=== PATIENT | female | born 1985 | race Caucasian/White ===

== ENCOUNTER 2016-11-09 17:28 | Emergency (ER) | payer OTHER ==
[2016-11-09] MEDS ORDERED: DIPHENHYDRAMINE HCL 50 MG/ML VIAL IV ONE (17:44)
[2016-11-09] MEDS ORDERED: LORAZEPAM INJ 2 MG/1 ML VIAL IV ONE (17:44)
[2016-11-09] MEDS ORDERED: NORMAL SALINE 1000 ML 1,000 ML IV PRN (17:44)
--- NOTE | 2016-11-09 17:45 | ER Document Report ---
ED General - General Chief Complaint: Altered Mental Status Stated Complaint: ALTERED MENTAL STATE Time Seen by Provider: 11/09/16 17:37 Mode of Arrival: Wheelchair Information source: Patient, Relative - HPI Patient complains to provider of: Possible hallucinations Onset: This afternoon Onset/Duration: Sudden Similar symptoms previously: No Recently seen / treated by doctor: No Notes: Patient is a 31-year-old female who was brought to the emergency room by for possible hallucinations, patient reports that she has swelling in her feet and her hands, and that she has warms crawling out of her skin all over her, she reports having a intermediate manager her right eye as well, patient currently takes Adderall for ADD, no other medications, denies using any street drugs, denies being , denies injury or trauma, her Enrique is at bedside and confirms that patient has never had symptoms similar to this in the past, he does report that they had an argument last night and he believes that patient is having an "mental breakdown" - Related Data Allergies/Adverse Reactions: acetaminophen [From Darvocet-N 100] Allergy (Verified 12/13/10 16:40) propoxyphene napsylate [From Darvocet-N 100] Allergy (Verified 12/13/10 16:40) Past Medical History - General Information source: Patient, Relative - Social History Smoking Status: Never Smoker Drug Abuse: None Lives with: Family Family History: Reviewed & Not Pertinent Renal/ Medical History: Denies: Hx Peritoneal Dialysis Review of Systems - Review of Systems Constitutional: No symptoms reported EENT: No symptoms reported Cardiovascular: No symptoms reported Respiratory: No symptoms reported Gastrointestinal: No symptoms reported Genitourinary: No symptoms reported Female Genitourinary: No symptoms reported Musculoskeletal: No symptoms reported Skin: See HPI Hematologic/Lymphatic: No symptoms reported Neurological/Psychological: See HPI -: Yes All other systems reviewed and negative Physical Exam - Vital signs Vitals: Resp Pulse Ox 28 H 99 11/09/16 17:39 11/09/16 17:39 Interpretation: Normal - General General appearance: Appears well, Alert - HEENT Head: Normocephalic, Atraumatic Eyes: Normal Conjunctiva: Injected Cornea: Normal Extraocular movements intact: Yes Eyelashes: Normal Pupils: PERRL Mucous membranes: Dry Pharynx: Normal Neck: Normal - Respiratory Respiratory status: No respiratory distress Chest status: Nontender Breath sounds: Normal Chest palpation: Normal - Cardiovascular Rhythm: Regular Heart sounds: Normal auscultation Murmur: No - Abdominal Inspection: Normal Distension: No distension Bowel sounds: Normal Tenderness: Nontender Organomegaly: No organomegaly - Back Back: Normal, Nontender - Extremities General upper extremity: Normal inspection, Nontender, Normal color, Normal ROM , Normal temperature General lower extremity: Normal inspection, Nontender, Normal color, Normal ROM , Normal temperature, Normal weight bearing. No: Luis's sign - Neurological Neuro grossly intact: Yes Cognition: Normal Orientation: AAOx4 [place] Coma Scale Eye Opening: Spontaneous Abel Coma Scale Verbal: Oriented Abel Coma Scale Motor: Obeys Commands Abel Coma Scale Total: 15 Speech: Normal Motor strength normal: LUE, RUE, LLE, RLE Sensory: Normal - Psychological Associated symptoms: Anxious, Visual hallucinations - Skin Skin Temperature: Warm Skin Moisture: Dry Skin Color: Normal Location of irregularity: Face - Small erythematous described lesions to the patient's face and upper lip, Extremities - Several small indurated erythematous lesions to patient's upper extremities Course - Re-evaluation Re-evalutation: 11/09/16 20:27 Patient continues to report warm crawling out of her skin with swelling in her extremities, I see no evidence of swelling evidence of any insects or worms, right eye was evaluated with fluorescein stain, no corneal abrasions, no evidence of foreign body or worms as the patient reports, according to patient' s they had an argument yesterday evening, they have a young child at home that was born with gastroschisis, patient is under a great deal of stress and he believes patient is having a "mental breakdown", I do believe patient is having an episode of acute psychosis, therefore IVC paperwork was completed and patient will be held in the emergency room for further evaluation and treatment by mental health team, this plan was discussed with patient's who is in agreement as well - Vital Signs Vital signs: Temp Pulse Resp BP Pulse Ox 22 H 113/70 100 11/09/16 19:01 11/09/16 19:01 11/09/16 19:01 - Laboratory Result Diagrams: 11/09/16 17:45 11/09/16 17:45 Laboratory results interpreted by me: 11/09/16 11/09/16 11/09/16 17:45 17:45 19:10 WBC 13.0 H Absolute Neutrophils 8.3 H Potassium 3.4 L Carbon Dioxide 20 L Urine Protein 100 H Urine Ketones 80 H Urine Blood MODERATE H Procedures - Eye Procedure Right Time completed: 20:30 Eye Irrigated w/ Saline (ccs): 10 Alcaine Drops Administered: Yes Fluorescein applied: Right Slit lamp used: No Discharge - Discharge Clinical Impression: Psychosis Qualifiers: Psychosis type: other Qualified Code(s): F28 - Other psychotic disorder not due to a substance or known physiological condition Condition: Stable Disposition: PSYCH HOSP/UNIT
[2016-11-09 17:56] LABS: ABSOLUTE BASOPHILS # (AUTO) 0.1 10^3/uL (0.0-0.2); ABSOLUTE EOSINOPHILS # (AUTO) 0.1 10^3/uL (0.0-0.6); ABSOLUTE LYMPHOCYTES (AUTO) 3.5 10^3/uL (0.5-4.7); ABSOLUTE NEUT (AUTO) 8.3 10^3/uL (1.7-8.2); BASOPHILS % (AUTO) 0.9 % (0-2); EOSINOPHILS % (AUTO) 0.9 % (0-6); HEMATOCRIT 42.8 % (36.0-47.0); HEMOGLOBIN 14.1 g/dL (12.0-15.5); HGB HCT DIFFERENCE -0.5; LYMPHOCYTES % (AUTO) 27.1 % (13-45); MEAN CORPUSCULAR HEMOGLOBIN 29.3 pg (27.0-33.4); MEAN CORPUSCULAR HGB CONC 32.9 g/dL (32.0-36.0); MEAN CORPUSCULAR VOLUME 89 fl (80-97); MONOCYTES % (AUTO) 7.4 % (3-13); RED BLOOD COUNT 4.81 10^6/uL (3.72-5.28); RED CELL DISTRIBUTION WIDTH 12.9 % (11.5-14.0); SEGMENTED NEUTROPHILS % (AUTO) 63.7 % (42-78)
[2016-11-09 18:15] LABS: ALANINE AMINOTRANSFERASE 29 U/L (9-52); ALBUMIN 4.8 g/dL (3.5-5.0); ALKALINE PHOSPHATASE 71 U/L (38-126); ANION GAP 18 (5-19); ASPARTATE AMINO TRANSFERASE 29 U/L (14-36); BILIRUBIN,DIRECT 0.3 mg/dL (0.0-0.4); BILIRUBIN,TOTAL 1.3 mg/dL (0.2-1.3); BLOOD UREA NITROGEN 14 mg/dL (7-20); CALCIUM 9.8 mg/dL (8.4-10.2); CARBON DIOXIDE 20 mmol/L (22-30); CHLORIDE 107 mmol/L (98-107); CREATININE RESULT 0.98 mg/dL (0.52-1.25); GLUCOSE 102 mg/dL (75-110); POTASSIUM 3.4 mmol/L (3.6-5.0); SODIUM 144.5 mmol/L (137-145); TOTAL PROTEIN 8.2 g/dL (6.3-8.2)
[2016-11-09] MEDS ORDERED: TETRACAINE HCL 0.5% OPH SOLN 2 ML OD ONE (18:59)
[2016-11-09 19:24] LABS: APPEARANCE,URINE SLIGHTLY-CLOUDY; BILIRUBIN,URINE NEGATIVE (NEGATIVE); GLUCOSE, URINE NEGATIVE (NEGATIVE); KETONES,URINE 80 mg/dL (NEGATIVE); LEUKOCYTE ESTERASE,URINE NEGATIVE (NEGATIVE); NITRITE,URINE NEGATIVE (NEGATIVE); PROTEIN,URINE 100 mg/dL (NEGATIVE); URINE SPECIFIC GRAVITY 1.028; UROBILINOGEN,URINE NEGATIVE mg/dL (<2.0)
[2016-11-09 19:38] LABS: URINE BARBITURATES SCREEN NEGATIVE; URINE METHADONE SCREEN NEGATIVE; URINE OPIATES LOW NEGATIVE; URINE PHENCYCLIDINE SCREEN NEGATIVE
[2016-11-09] MEDS ORDERED: ZIPRASIDONE MESYLATE INJ/PF 20 MG SDV IM ONE (21:14)
--- NOTE | 2016-11-09 21:45 | ER Document Report ---
Doctor's Note Notes: 11/09/16 21:44 Patient seen and evaluated at bedside per request from the nurse patient very agitated trying to leave arguing with her security is present. She does not recall why she is here any discussions with the previous physician had with her. I was reported to me that she was hallucinating currently she is not in normal state of mind and has no recollection of any of these conversations and is acting very agitated and fidgety. I got her to agree to let me give her a dose of Geodon to calm her down and IVC paperwork is completed work seen and evaluated in a.m.
--- NOTE | 2016-11-10 11:29 | ER Document Report ---
ED Psych Disorder / Suicide - General Mode of Arrival: Wheelchair Information source: Patient, Relative - HPI Onset: Just prior to arrival Onset was: Sudden Suicide Risk Factors: Other mental health dx. - ADHD Situational problems related to: Spouse Normal mood: Yes - family states patinet is at baseline Associated symptoms: Normal affect - per family, Normal mood, Manic Similar symptoms previously: No Recently seen / treated by doctor: No <JODI LOTT - Last Filed: 11/10/16 11:25> <ANNE TORIBIO - Last Filed: 11/10/16 11:40> - General Chief Complaint: Altered Mental Status Stated Complaint: ALTERED MENTAL STATE Time Seen by Provider: 11/09/16 17:37 - HPI Notes: Patient is a 31 year old female who presented overnight with possible AMS, possibly due to misuse of her prescribed amphetamine. Patient did require Geodon to assist her in calming down. Patient this morning states she is not sure what transpired. She states she had a panic attack at home after she found a worm in her eye and was picking at it to remove it. She describes symptoms associated with a panic attack, eg difficulty breathing, etc. Patient states she and her discussed having another child but denies arguing. She states it is a personal topic because their child, who is 6 was born with a chronic disorder which has emotionally drained each of them. Patient states at various times each of them have been ready or not ready, and now she is emotionally ready and her is not. Patient states she sees Dr. Sykes and is prescribed Adderall onw 20 mg tab 1-3 times per day. Patient adamant that she takes this as prescribed. Patient denies SI/HI. Patient provides consent to speak with her family members who are bedside. , mother and father all collectively report the patient is at her normal baseline mental status. states he brought her in last night due to panic attack, and denies any concerns for her safety or the safety of others. states he will monitor patient's prescription use. Mother and father states patient's called last night just to let them know that she was in the hospital and decided to drive down from [place] to check in and provide support. Parents deny concerns with patient's current presentation. Family all report patient will not be left alone/will monitor, and they will assist in follow up with Dr. Sykes for medication management. ADHD, per history Patient is psychiatrically cleared for discharge. Patient is recommended for rescind IVC to follow up with her provider for medication assessment. Patient denies SI/HI. All 3 of patient's family members report no concerns with patient 's current mental status/presentation. is in agreement to monitor patient's medications. I consulted with Dr. Smith in regards to the care and management of this patient. ED MD is in agreement with disposition and recommendations. (JODI LOTT) - Related Data Allergies/Adverse Reactions: acetaminophen [From Darvocet-N 100] Allergy (Verified 12/13/10 16:40) propoxyphene napsylate [From Darvocet-N 100] Allergy (Verified 12/13/10 16:40) Past Medical History - General Information source: Patient, Relative - Social History Smoking Status: Never Smoker Drug Abuse: None Lives with: Family Family History: Reviewed & Not Pertinent Patient has suicidal ideation: No Patient has homicidal ideation: No Renal/ Medical History: Denies: Hx Peritoneal Dialysis <JODI LOTT - Last Filed: 11/10/16 11:25> Course - Laboratory Result Diagrams: 11/09/16 17:45 11/09/16 17:45 <JODI LOTT - Last Filed: 11/10/16 11:25> - Laboratory Result Diagrams: 11/09/16 17:45 11/09/16 17:45 <ANNE TORIBIO - Last Filed: 11/10/16 11:40> - Re-evaluation Re-evalutation: 11/10/16 11:39 Patient was reviewed with family members at bedside agree with plan at this time discharged home hospice control medications and patient is to follow-up with her psychiatrist in the morning. family members and patient agree with this plan agree with assessment of her mental health workers will discharge home (ANNE TORIBIO) - Vital Signs Vital signs: Temp Pulse Resp BP Pulse Ox 97.9 F 17 105/50 L 100 11/10/16 06:40 11/10/16 07:02 11/10/16 07:02 11/10/16 07:02 - Laboratory Laboratory results interpreted by me: 11/09/16 11/09/16 11/09/16 17:45 17:45 19:10 WBC 13.0 H Absolute Neutrophils 8.3 H Potassium 3.4 L Carbon Dioxide 20 L Urine Protein 100 H Urine Ketones 80 H Urine Blood MODERATE H Discharge <JODI LOTT - Last Filed: 11/10/16 11:25> <ANNE TORIBOI - Last Filed: 11/10/16 11:40> - Discharge Clinical Impression: Psychosis Qualifiers: Psychosis type: other Qualified Code(s): F28 - Other psychotic disorder not due to a substance or known physiological condition Condition: Stable Disposition: HOME, SELF-CARE Additional Instructions: Altered Mental Status An altered mental status is a change in the normal functioning of the brain. This alteration of function can range from minor decreased brain function with some forgetfulness and confusion to complete loss of consciousness and coma. There are many possible causes of an altered mental status and include brain injuries such as trauma or strokes, problems with oxygen supply to the brain, fever and infections of the brain and/or elsewhere in the body, metabolic abnormalities such as low or high blood sugar, overdoses or excessive medication ingestion, and mental and psychiatric illnesses. Sometimes the altered mental status resolves and a definite cause is not determined. If a cause for your altered mental status was found, it has likely been corrected. Your evaluation has not shown any condition that requires that you be admitted to the hospital. It is believed that you are safe to leave and return to your home. If you have a return of your symptoms, you should return for re-evaluation. Pleas take your medications only as prescribed. Please follow up with your provider within 3-5 days for evaluation of need for your medications. Please return if your symptoms worsen. You have been provided a list of resources to assist you with following up, to include mobile crisis. [facility] [Provider Group] - Follow up in 3-5 days (Please discuss your medications with your provider.)
[2016-11-10 11:49] VITALS: BP 112/62
== END 2016-11-10 11:49 | disposition home or self-care (01) ==
LOC: ER 17:28
DX: F28 Other psychotic disorder not due to a substance or known physiological condition (principal); R41.82 Altered mental status, unspecified; M79.89 Other specified soft tissue disorders; F90.9 Attention-deficit hyperactivity disorder, unspecified type; Z88.6 Allergy status to analgesic agent
CPT/HCPCS: 99285; 96372; 96361; 96374; 96375; 36415; 87086; 84703; 85025; 80053; 81001; 80307; J1200; J2060; J3486; J7030